=== PATIENT | male | born 1940 | race Caucasian/White ===

== ENCOUNTER 2017-11-28 12:21 | Day surgery (SDC) | payer OTHER, BC ==
[2017-11-28 07:19] VITALS: BMI 25.5
[~2017-11-28 12:21] MED LIST: ACETAMINOPHEN 1000 MG/100 ML VIAL (NON FORMULARY) IVPB PRN; DEXAMETHASONE SOD PHOSPHATE 4 MG/1 ML VIAL ONE; GELATIN, ABSORBABLE 100 EACH SPONGE TP ONE; LIDOCAINE HCL 1%, 10 MG/ML (20ML VIAL) ONE; LIDOCAINE HCL/PF 2% SDV 5ML VIAL ONE; MIDAZOLAM HCL 2 MG/2 ML SINGLE DOSE VIAL ONE; ONDANSETRON 4 MG/2 ML VIAL IVPUSH PRN; ONDANSETRON 4 MG/2 ML VIAL ONE; PROPOFOL 20 ML ONE; ROCURONIUM BROMIDE 50 MG/5 ML VIAL ONE; THROMBIN (BOVINE) 5,000 UNIT VIAL TP ONE; ceFAZolin SODIUM 1 GM VIAL ONE; morphine CARPU-JECT 4 MG/1 ML DISP.SYRIN IVPUSH PRN; oxyCODONE HCL 5 MG TABLET PO PRN
--- NOTE | 2017-11-28 12:55 | OP ---
Operative Note - Note: Operative Date: 11/28/17 Pre-Operative Diagnosis: post lamiectomy syndrome Operation: lamiectomy T8-T9 and T7-T8 with spinal courd stimulator implantation Post-Operative Diagnosis: Same as Pre-op Surgeon: Josiah Garvin Brain Picker: Pat Arauz Anesthesiologist/MANAGER RESOURCE: Ion Felipe Anesthesia: General Estimated Blood Loss (mls): 25 Fluid Volume Replaced (mls): 1,000 Operative Report Dictated: Yes
--- NOTE | 2017-11-28 12:57 | SURG ---
Surgery Marking Clerk Note Marking Clerk: Pat Arauz PA-C Date of Service: 11/28/17 Diagnosis: post laminectomy syndrome Procedure: lamiectomy T8-T9 and T7-T8 with spinal courd stimulator implantation I was present for the entirety of the operative procedure. For further detail, please refer to operative report. Visit type - Case Type Case Type: Scheduled - Emergency Emergency Visit: No - New patient This patient is new to me today: Yes Date on this admission: 11/28/17
[2017-11-28] MEDS: LACTATED RINGERS SOLUTION 1,000 ML IV SCH (14:50)
--- NOTE | 2017-11-28 16:13 | PN ---
Progress Note (short form) - Note Progress Note: doing well avss dressings clean NVID motor 5/5 HF to GS distal pulses 2+ s/p permanent spinal cord stimulator -oob/ambulation/pain control -d/c tomorrow morning if stable -wound care discussed.
[2017-11-28] MEDS: ACETAMINOPHEN 325 MG TABLET (FP) PO SCH (17:14)
[2017-11-28] MEDS: CEFAZOLIN 1 GM/D5W 1 GM/50 ML BAG IVPB SCH (17:16)
[2017-11-28] MEDS ORDERED: PROCHLORPERAZINE INJECTION 10 MG/2 ML VIAL IVPB PRN (17:38)
[2017-11-28] MEDS ORDERED: morphine SULFATE 4 MG/ML VIAL IVPUSH PRN (23:14)
[2017-11-29] MEDS: ACETAMINOPHEN 325 MG TABLET (FP) PO SCH ×3 (00:38→12:30)
[2017-11-29] MEDS: CEFAZOLIN 1 GM/D5W 1 GM/50 ML BAG IVPB SCH (01:01)
[2017-11-29] MEDS ORDERED: LEVOTHYROXINE NA 100 MCG TABLET (FP) PO SCH (07:00)
[2017-11-29 08:00] LABS: HEMATOCRIT 33.9 % (35.4-49); HEMOGLOBIN 11.2 GM/dl (11.7-16.9); MCH 30.4 pg (25.7-33.7); MCHC 32.9 g/dl (32.0-35.9); MEAN CELL VOLUME 92.4 fl (80-96); MEAN PLT VOLUME 7.7 fl (7.5-11.1); PLATELET COUNT 239 K/MM3 (134-434); RBC 3.67 M/mm3 (4.00-5.60); RDW 14.4 % (11.9-15.9); WHITE BLOOD COUNT 7.4 K/mm3 (4.0-10.8)
[2017-11-29 08:02] LABS: ANION GAP 6 MMOL/L (8-16); BLOOD UREA NITROGEN 21 mg/dl (7-18); CALCIUM 8.6 mg/dl (8.4-10.2); CHLORIDE 100 mmol/L (98-107); CO2 29 mmol/L (22-28); CREATININE 0.9 mg/dl (0.6-1.3); GLUCOSE,RANDOM 111 mg/dl (74-106); POTASSIUM 4.7 mmol/L (3.5-5.1); SODIUM 135 mmol/L (136-145)
--- NOTE | 2017-11-29 08:46 | OP ---
DATE OF OPERATION: 11/28/2017 PREOPERATIVE DIAGNOSES: 1. Chronic low back pain. 2. Post-laminectomy syndrome. POSTOPERATIVE DIAGNOSES: 1. Chronic low back pain. 2. Post-laminectomy syndrome. PROCEDURE PERFORMED: 1. T9 laminotomy for insertion of spinal cord stimulator paddle. 2. T8 laminotomy for insertion of spinal cord stimulator paddle. 3. Insertion of spinal cord stimulator generator. 4. Intraoperative impedance testing. IMPLANT: [employer] paddle and pulse generator - [employer] W[employer] IPG; [employer] Paddle Electrode; 2 ClicX anchors SURGEON: Josiah Garvin MD VIDEO TAPE EDITOR: DEBO Mcdonough ANESTHESIA: General. INDICATION: The patient is a 77-year-old male who has a longstanding history of chronic low back pain. He underwent multiple lumbar fusion procedures. He had a spinal cord stimulator trial which was successful. 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 After treatment, laboratory values and followup MRI showed resolution of the infection. The patient is indicated for a permanent spinal cord stimulator placement. Risks, benefits , and alternatives of the surgery discussed in detail with the family and the patient. Informed consent was obtained. DESCRIPTION: The patient was brought into the operating room via stretcher, and general endotracheal anesthesia was administered by the anesthesiologist. The patient was then flipped into the prone position onto a padded chest bolsters, and all bony prominences were padded. The patient had recent right shoulder surgery ; so, the right shoulder was padded to the side. Prophylactic IV antibiotics were administered, and a timeout was performed. The back was then prepped and draped in the usual sterile fashion. The intention preoperatively was to insert the paddle across the T7 vertebral body. An incision was then made at the appropriate level after localization with fluoroscopy. Dissection was carried down to the level of the fascia. The fascia was split with electrocautery. Subperiosteal dissection was carried down, exposing the bony spine. A laminotomy at the midline of the T9 lamina was then performed, and the ligamentum flavum was excised. At this point, I attempted to insert the paddle down the midline. However, visualization with fluoroscopy showed the paddle was twisting either left or right on the AP as well as anteriorly on the lateral fluoroscopic radiograph. After multiple gentle attempts at passing the paddle to the midline, a decision was made to perform another laminotomy further proximally. The incision was lengthened proximally and subperiosteal dissection was carried down, exposing the T8 lamina. A hemilaminotomy at the T8 lamina was then performed, and the ligamentum flavum was excised, exposing the spinal cord. At this point, I attempted to pass the paddle proximally. However, there was a fairly resistant adhesion at the center at this level, proximal to the laminotomy. This could possibly be due to his prior thoracic infection that occurred during his trial causing scarring of the epidural space It was clear that this was the area that was causing the paddle to twist off the midline. At this point, I did not feel comfortable carrying the laminotomy proximal to this adhesion, or making another laminotomy further up from here. I made the decision to put the paddle at the midline at the T8 level. The paddle was perfectly in the midline at this level and flat posterior on the lateral fluoroscopic radiograph. The paddle was then secured to the fascia using 2 ClikX anchors which were tacked to the fascia and final tightened using the torquing screwdriver. A horizontal incision was then made below the iliac crest on the right side, and subcutaneous dissection was carried down using my finger. The tunneler was then used to pass the wires posteriorly. Impedance testing intraoperatively showed excellent testing of each individual wire along with testing with the wires placed on the generator. The generator was then placed in the pocket subcutaneously. The wounds were then copiously irrigated. Hemostasis was well achieved. The deep fascia was closed with a number 1 Vicryl suture, the deep dermal tissue approximated with 2-0 Vicryl suture, and the skin was closed with running 3-0 nylon sutures. Pat Arauz PA-C, was necessary throughout the case for operative assistance in retraction of the neural elements and implantation of the device. This could not have been done without a skilled surgical assistance. This case was made significantly more difficult and time consuming than a standard paddle insertion due to the multiple attempts necessary to place the paddle in the appropriate location, as well as the need for a second thoracic laminotomy. Postoperatively, the patient's neurologic exam was intact without any deficit. I had a long discussion with the patient as well as his about why the paddle ended up at T8 as opposed to T7 as previously intended. I do think that he will get excellent relief with this implant in any case. Satish [id number] [id number]
[2017-11-29] MEDS ORDERED: PT OWN MED DRAWER 7, Y5N ONE (09:14)
--- NOTE | 2017-11-29 09:48 | PN ---
Progress Note (short form) - Note Progress Note: doing well reports minimal pain walked today with PT AVSS Dressings clean NVID Motor strength intact Bilateral lower extremities Calves soft s/p permanent spinal cord stimulator insertion -d/c home -wound instructions given -f/u one week for wound check
[2017-11-29] MEDS ORDERED: TIOTROPIUM BROMIDE 2.5 MCG (SPIRIVA) RESPIMAT INHALER IH SCH (10:00)
[2017-11-29] MEDS ORDERED: CITALOPRAM HYDROBROMIDE 20 MG TABLET (FP) PO SCH (10:00)
[2017-11-29] MEDS ORDERED: amLODIPine BESYLATE 5 MG TABLET (FP) PO SCH (10:00)
[2017-11-29] MEDS ORDERED: PATIENT'S OWN MEDICATION (NON-FORMULARY) (Tiotropium Bromide [Spiriva] 18 MCG) IH SCH (10:00)
[2017-11-29] MEDS: LACTATED RINGERS SOLUTION 1,000 ML IV SCH (12:31)
[2017-11-29 13:55] VITALS: BP 121/59; PULSE 70; TEMP 98.9
--- NOTE | 2017-11-30 10:41 | PN ---
Progress Note, Physician Chief Complaint: s/p laminectomy and spinal cord stimulator implant under general anesthesia History of Present Illness: post op day one - Objective Vital Signs: Vital Signs Temperature 98.9 F 11/29/17 12:00 Pulse Rate 70 11/29/17 12:00 Respiratory Rate 18 11/29/17 12:00 Blood Pressure 121/59 11/29/17 12:00 O2 Sat by Pulse Oximetry (%) 95 11/29/17 04:00 Constitutional: Yes: Well Nourished Cardiovascular: Yes: WNL Respiratory: Yes: WNL Gastrointestinal: Yes: WNL Labs: CBC, BMP 11/29/17 07:15 11/29/17 07:15 Assessment/Plan complained of nausea and vomiting after the surgery, since resolved, pain minimal at incision, persistent lower extremity pain, does not want narcotics, No adverse effect from anesthetic, will sign off the case at this time.
== END 2017-11-29 13:15 | disposition home or self-care (01) ==
LOC: FM/S 12:21 → FASUSAT 12:21
PROVIDERS: ATTEND Orthopaedic Surgery Orthopaedic Surgery of the Spine
PROC: 0RBP4ZZ Excision of Left Wrist Joint, Percutaneous Endoscopic Approach (ICD-10-PCS; principal; 2017-11-28 08:00)
DX: S63.592A Other specified sprain of left wrist, initial encounter (principal); X58.XXXA Exposure to other specified factors, initial encounter; Y93.9 Activity, unspecified; Y92.9 Unspecified place or not applicable; M65.9 Synovitis and tenosynovitis, unspecified
CPT/HCPCS: 36415; 72070-TC-FY; 80048; 85027; 94760; 97116-GP; 97162-GP; G8978-CJ-GP; G8979-CJ-GP; G8981-CJ-GP

== ENCOUNTER 2017-12-27 06:42 | Day surgery (SDC) | payer OTHER, BC ==
[2017-12-26 16:14] VITALS: BMI 25.3
[2017-12-27] MEDS ORDERED: ROCURONIUM BROMIDE 50 MG/5 ML VIAL ONE (07:35)
[2017-12-27] MEDS ORDERED: PROPOFOL 20 ML ONE (07:35)
[2017-12-27] MEDS ORDERED: MIDAZOLAM HCL 2 MG/2 ML SINGLE DOSE VIAL ONE ×2 (07:57)
[2017-12-27] MEDS ORDERED: BUPIVACAINE HCL/PF 2.5 MG/ML - 30 ML VIAL IJ ONE (08:21)
[2017-12-27] MEDS ORDERED: BUPIVACAINE HCL/PF 0.25% (2.5MG/ML) 10 ML VIAL IJ ONE (08:26)
[2017-12-27] MEDS ORDERED: BACITRACIN 15 GM TUBE TOPICAL OINTMENT ONE (08:41)
[2017-12-27] MEDS ORDERED: BACITRACIN 15 GM TUBE TOPICAL OINTMENT TP ONE (08:45)
[2017-12-27 09:05] VITALS: TEMP 98.4
[2017-12-27 09:32] VITALS: BP 108/58; PULSE 74
--- NOTE | 2017-12-27 09:49 | OP ---
DATE OF OPERATION: 12/27/2017 PREOPERATIVE DIAGNOSIS: Thoracic wound dehiscence. POSTOPERATIVE DIAGNOSIS: Thoracic wound dehiscence. PROCEDURE PERFORMED: Irrigation and debridement of thoracic wound, wound exploration, wound closure. SURGEON: Josiah Garvin MD ANESTHESIA: IV sedation with local. PCB DESIGN ENGINEER: There was no assist. INDICATIONS FOR THE PROCEDURE: The patient is a 77-year-old male who is approximately 4 weeks status post permanent spinal cord stimulator placement. He was doing very well postoperatively until on December 25, when they noticed a little opening in the wound, and there was drainage from the wound. I saw him in the office yesterday. There was a 1-mm wound dehiscence caused by a prominence in one of the loops of the spinal cord stimulator. Decision was made to do a wound exploration and deal with this prominence and reclose the wound. Risks, benefits, and alternatives were discussed in detail with the patient and family, and informed consent was obtained. DESCRIPTION: The patient was brought into the operating room via stretcher and transferred onto the OR table in the prone position. IV sedation was administered by the anesthesiologist. The wound was then prepped and draped in the usual sterile fashion. Local anesthesia was then introduced into the area around the wound totaling 8 mL of 0.25% Marcaine. A time-out was performed and prophylactic IV antibiotics were administered. The incision was then opened up both proximally and distally in the area of dehiscence. There was no purulence noted. The wound was copiously irrigated. The prominence on the wound was caused by the distal portion of one of the securing anchors was flipped up towards the surface. I went ahead and packed down the anchor back down to the fascia with two 3-0 silk sutures showing excellent securing onto the fascia without issue. The wound was then closed with a combination of 3-0 nylon vertical mattress sutures and a running 3-0 nylon suture. A sterile dressing was applied. The patient tolerated the procedure well without complications. Satish [id number]
== END 2017-12-27 09:35 | disposition home or self-care (01) ==
LOC: FASU 06:42
PROVIDERS: ATTEND Orthopaedic Surgery Orthopaedic Surgery of the Spine
PROC: 0JW Subcutaneous Tissue and Fascia, Revision (ICD-10-PCS; principal; 2017-12-27 08:26)
DX: T81.31XA Disruption of external operation (surgical) wound, not elsewhere classified, initial encounter (principal); Y82.8 Other medical devices associated with adverse incidents; Y92.9 Unspecified place or not applicable

== ENCOUNTER 2018-06-11 12:24 | Day surgery (SDC) | payer OTHER, BC ==
[2018-06-07 11:09] VITALS: BMI 26.6
[2018-06-11] MEDS ORDERED: MIDAZOLAM HCL 2 MG/2 ML SINGLE DOSE VIAL ONE (14:50)
[2018-06-11] MEDS ORDERED: SCOPOLAMINE HYDROBROMIDE 1 PATCH PATCH.TD72 ONE (14:50)
[2018-06-11] MEDS ORDERED: PROPOFOL 20 ML ONE (14:59)
[2018-06-11] MEDS ORDERED: ROCURONIUM BROMIDE 50 MG/5 ML VIAL ONE (14:59)
[2018-06-11] MEDS ORDERED: SUCCINYLCHOLINE CHLORIDE 200 MG/10 ML VIAL ONE (14:59)
[2018-06-11] MEDS ORDERED: ceFAZolin SODIUM 1 GM VIAL ONE (15:11)
[2018-06-11] MEDS ORDERED: PHENYLEPHRINE HCL 10 MG/1 ML SINGLE DOSE VIAL ONE (15:13)
[2018-06-11] MEDS ORDERED: DEXAMETHASONE SOD PHOSPHATE 4 MG/1 ML VIAL ONE (15:13)
[2018-06-11] MEDS ORDERED: ONDANSETRON 4 MG/2 ML VIAL ONE ×2 (15:13→16:20)
[2018-06-11] MEDS ORDERED: BACITRACIN 15 GM TUBE TOPICAL OINTMENT ONE (15:36)
[2018-06-11] MEDS ORDERED: oxyCODONE HCL 5 MG TABLET PO PRN (16:04)
[2018-06-11] MEDS ORDERED: ONDANSETRON 4 MG/2 ML VIAL IVPUSH PRN (16:04)
[2018-06-11] MEDS ORDERED: LACTATED RINGERS SOLUTION 1,000 ML IV SCH (16:15)
--- NOTE | 2018-06-11 16:19 | OP ---
DATE OF OPERATION: 06/11/2018 PREOPERATIVE DIAGNOSIS: Thoracic wound prominence. POSTOPERATIVE DIAGNOSIS: Thoracic wound prominence. PROCEDURE PERFORMED: Exploration of thoracic wound and revision of thoracic wound, as well as irrigation and debridement. SURGEON: Josiah Garvin MD ANESTHESIA: General. INDICATIONS: The patient is a 78-year-old male status post spinal cord stimulator placement several months ago. He has a prominent loop from the spinal cord stimulator paddle that is pressing on his thoracic wound from underneath and really bothering him. He wishes to have this revised. The risks, benefits and alternatives of the surgery were discussed in detail with the patient and family. Informed consent was obtained. DESCRIPTION OF PROCEDURE: The patient was brought into the operating room via stretcher, and general endotracheal anesthesia was administered by the anesthesiologist. The patient was then flipped into the prone position onto a padded Oleksandr frame. All bony prominences were padded. The thoracic wound was then opened in the area of the prominence. There was noted to be a prominent loop from the spinal cord stimulator paddle adjacent to the previous anchor. The wound was then irrigated. A small pocket was then made in the lateral aspect of the wound so as to be able to tuck in the prominent loop. This was secured with three 2-0 silk sutures. The wound was then closed with 2-0 nylon suture in vertical mattress fashion, followed by 3-0 nylon suture in running fashion. A sterile dressing was applied. The patient tolerated the procedure well, without complications. Satish [id number]
[2018-06-11] MEDS ORDERED: oxyCODONE HCL 5 MG TABLET ONE (16:23)
[2018-06-11 17:30] VITALS: TEMP 97.4
[2018-06-11 18:01] VITALS: BP 122/71; PULSE 87
== END 2018-06-11 18:04 | disposition home or self-care (01) ==
LOC: FASU 12:24
PROVIDERS: ATTEND Orthopaedic Surgery Orthopaedic Surgery of the Spine
PROC: 00WU0MZ Revision of Neurostimulator Lead in Spinal Canal, Open Approach (ICD-10-PCS; principal; 2018-06-11 15:17)
DX: T85.840A Pain due to nervous system prosthetic devices, implants and grafts, initial encounter (principal); Y75.3 Surgical instruments, materials and neurological devices (including sutures) associated with adverse incidents; Y92.9 Unspecified place or not applicable
CPT/HCPCS: 63664; C1778; 94760